=== PATIENT | female | born 1930 | race Caucasian/White ===

== ENCOUNTER 2019-07-13 13:02 | Inpatient (IN) ==
[2019-07-13 13:54] LABS: Bilirubin,Urine Negative (Negative); Blood,Urine Trace (Negative); Clarity,Urine Clear (Clear); Color,Urine Yellow (Yellow); Glucose,Urine (UA) Normal (Normal); Ketones,Urine Negative (Negative); Leukocyte Esterase,Urine Negative (Negative); Nitrite,Urine Negative (Negative); Protein,Urine 100 mg/dL (Neg-Trace); Specific Gravity,Urine 1.016 (1.010-1.025); Urobilinogen,Urine Normal (Normal)
[2019-07-13 13:57] LABS: Basophils % 0.3 %; Eosinophils # 0.1 K/mcL (0.0-0.6); Eosinophils % 1.4 %; Hemoglobin 11.8 g/dL (11.5-15.4); Immature Granulocytes % 0.6 % (0-4); Lymphocytes # 0.7 K/mcL (0.6-4.6); Lymphocytes % 9.1 %; Mean Corpuscular HGB Conc 33.7 g/dL (31.6-35.5); Mean Corpuscular Hemoglobin 29.2 pg (28.0-33.3); Mean Corpuscular Volume 86.6 fL (83.0-100.0); Mean Platelet Volume 10.6 fL (9.4-12.4); Monocytes # 0.6 K/mcL (0.0-1.3); Monocytes % 8.3 %; Neutrophils # 5.7 K/mcL (1.6-8.9); Platelet Count 106 K/mcL (140-400); Red Blood Count 4.04 M/mcL (3.82-4.97); Red Cell Distribution Width 13.6 % (11.5-14.5); Segmented Neutrophils % 80.3 %; White Blood Count 7.1 K/mcL (4.3-11.1)
[2019-07-13 13:58] LABS: Bacteria,Urine None Seen per hpf (None-Few); Hyaline Casts,Urine None Seen per lpf (None-Few); RBC,Urine 0-3 per hpf (0-3); Squamous Epithelial Cell,Urine Many per lpf (None-Few); WBC,Urine 0-3 per hpf (0-3)
[2019-07-13 13:59] LABS: Prothrombin Time 10.8 Seconds (9.4-12.1)
[2019-07-13 14:02] LABS: Activated Partial Thrombo Time 39.7 Seconds (26.0-36.0)
[2019-07-13 14:08] LABS: Alanine Aminotransferase 39 Units/L (7-52); Albumin 4.1 g/dL (3.5-5.7); Albumin/Globulin Ratio 1.3 (1.1-2.2); Alkaline Phosphatase 104 Units/L (34-104); Aspartate Amino Transferase 37 Units/L (13-39); BUN/Creatinine Ratio 26 (6-26); Bilirubin,Total 0.3 mg/dL (0.3-1.0); Blood Urea Nitrogen 20 mg/dL (8-23); Calcium 9.6 mg/dL (8.6-10.3); Carbon Dioxide 26 mEq/L (23-29); Chloride 93 mEq/L (98-107); Globulin 3.2 g/dL (2.4-3.5); Glucose 124 mg/dL (70-105); Osmolality,Calculated 260 (280-300); Potassium 4.8 mEq/L (3.5-5.1); Sodium 123 mEq/L (136-145); Total Protein 7.3 g/dL (6.4-8.9); eGFR For African Americans > 60 (> 60); eGFR For Non-African Americans > 60 (> 60)
[2019-07-13 14:09] LABS: Troponin I < 0.03 ng/mL (< 0.04)
[2019-07-13] MEDS ORDERED: 0.9 % Sodium Chloride 1,000 ML IVC SCH (14:45)
[2019-07-13] MEDS ORDERED: Ondansetron 4 MG/2 ML VIAL IVP PRN (15:39)
[2019-07-13] MEDS ORDERED: Naloxone 0.4 MG/ML INJ IVP PRN (15:39)
[2019-07-13] MEDS ORDERED: Dextrose Gel 15 GM/37.5 ML TUBE PO PRN ×2 (15:53)
[2019-07-13] MEDS ORDERED: D5% in Water 1,000 ML IVC PRN (15:53)
[2019-07-13] MEDS ORDERED: *HR* Dextrose 50 % in Water (Syg) 50 ML SYRINGE IVP PRN (15:53)
[2019-07-13 16:17] LABS: ABG Base Excess 2 mEq/L (-2 to 3); ABG HCO3 27 mEq/L (21-27); ABG Oxygen Saturation 98 % (95-98); ABG PCO2 39 mmHg (35-45); ABG PH 7.44 pH Units (7.32-7.45); ABG PO2 92 mmHg (85-104); ABG TCO2 28 mEq/L (20-26)
[2019-07-13] MEDS ORDERED: Levothyroxine Sodium 100 MCG VIAL IVP ONE (16:27)
[2019-07-13] MEDS ORDERED: Hydrocortisone Sodium Succ 100 MG/2 ML VIAL IVP ONE (16:53)
[2019-07-13 17:31] LABS: Triiodothyronine (T3) Free 2.76 pg/mL (2.50-3.90)
[2019-07-13] MEDS ORDERED: Cosyntropin 250 MCG/2 ML VIAL IVP ONE (18:03)
[2019-07-13 23:53] LABS: BUN/Creatinine Ratio 23 (6-26); Blood Urea Nitrogen 19 mg/dL (8-23); Calcium 9.1 mg/dL (8.6-10.3); Carbon Dioxide 25 mEq/L (23-29); Chloride 96 mEq/L (98-107); Glucose 215 mg/dL (70-105); Osmolality,Calculated 271 (280-300); Potassium 4.2 mEq/L (3.5-5.1); Sodium 126 mEq/L (136-145); eGFR For African Americans > 60 (> 60); eGFR For Non-African Americans > 60 (> 60)
[2019-07-13] MEDS: Insulin LISPRO 300 UNITS/3 ML VIAL SQ SCH (23:53)
[2019-07-14] MEDS: 0.9 % Sodium Chloride 1,000 ML IVC SCH ×2 (00:45→06:38)
[2019-07-14 04:26] LABS: Basophils % 0.2 %
[2019-07-14 04:28] LABS: Eosinophils % 0.2 %; Hematocrit 32.5 % (35.3-44.9); Immature Granulocytes % 0.4 % (0-4); Immature Platelets 4.1 % (1.1-6.1); Lymphocytes # 0.5 K/mcL (0.6-4.6); Lymphocytes % 9.3 %; Mean Corpuscular HGB Conc 33.8 g/dL (31.6-35.5); Mean Corpuscular Hemoglobin 29.6 pg (28.0-33.3); Mean Corpuscular Volume 87.6 fL (83.0-100.0); Mean Platelet Volume 9.8 fL (9.4-12.4); Monocytes # 0.4 K/mcL (0.0-1.3); Platelet Count 103 K/mcL (140-400); Red Blood Count 3.71 M/mcL (3.82-4.97); Red Cell Distribution Width 13.8 % (11.5-14.5); Segmented Neutrophils % 82.9 %; White Blood Count 5.1 K/mcL (4.3-11.1)
[2019-07-14 04:45] LABS: BUN/Creatinine Ratio 23 (6-26); Blood Urea Nitrogen 19 mg/dL (8-23); Calcium 9.1 mg/dL (8.6-10.3); Carbon Dioxide 26 mEq/L (23-29); Chloride 101 mEq/L (98-107); Glucose 68 mg/dL (70-105); Magnesium 1.8 mg/dL (1.6-2.6); Osmolality,Calculated 271 (280-300); Phosphorous 3.3 mg/dL (2.7-4.5); Sodium 130 mEq/L (136-145); eGFR For African Americans > 60 (> 60); eGFR For Non-African Americans > 60 (> 60)
[2019-07-14 04:47] LABS: Neutrophils # 4.2 K/mcL (1.6-8.9)
[2019-07-14 04:48] LABS: Platelet Estimate Decreased (Normal)
[2019-07-14 05:11] LABS: Folate 8.5 ng/mL (3.0-16.0)
[2019-07-14 05:12] LABS: Vitamin B12 > 1500 pg/mL (250-1100)
[2019-07-14] MEDS ORDERED: Levothyroxine Sodium 100 MCG VIAL IVP ONE (05:36)
[2019-07-14] MEDS: Insulin LISPRO 300 UNITS/3 ML VIAL SQ SCH ×2 (05:54→16:36)
[2019-07-14 10:08] LABS: Estimated Average Glucose 186 mg/dl
[2019-07-14] MEDS ORDERED: Naloxone 0.4 MG/ML INJ IVP PRN (10:10)
[2019-07-14] MEDS ORDERED: Ondansetron 4 MG/2 ML VIAL IVP PRN (10:10)
[2019-07-14] MEDS ORDERED: D5% in Water 1,000 ML IVC PRN (10:10)
[2019-07-14] MEDS ORDERED: *HR* Dextrose 50 % in Water (Syg) 50 ML SYRINGE IVP PRN (10:10)
[2019-07-14] MEDS ORDERED: Dextrose Gel 15 GM/37.5 ML TUBE PO PRN ×2 (10:10)
[2019-07-14] MEDS ORDERED: Insulin LISPRO 300 UNITS/3 ML VIAL SQ SCH (12:00)
[2019-07-14] MEDS: *HR* Heparin 5,000 UNIT/ML VIAL SQ SCH (17:49)
[2019-07-15] MEDS: Insulin LISPRO 300 UNITS/3 ML VIAL SQ SCH ×5 (00:14→19:54)
[2019-07-15] MEDS: *HR* Heparin 5,000 UNIT/ML VIAL SQ SCH ×2 (06:30→16:58)
[2019-07-15 09:27] LABS: Hemoglobin 10.9 g/dL (11.5-15.4); Mean Corpuscular Hemoglobin 29.5 pg (28.0-33.3); Red Blood Count 3.69 M/mcL (3.82-4.97); Red Cell Distribution Width 14.3 % (11.5-14.5)
[2019-07-15 09:29] LABS: Hematocrit 32.8 % (35.3-44.9); Immature Platelets 3.9 % (1.1-6.1); Mean Corpuscular HGB Conc 33.2 g/dL (31.6-35.5); Mean Corpuscular Volume 88.9 fL (83.0-100.0); Mean Platelet Volume 10.1 fL (9.4-12.4); Platelet Count 107 K/mcL (140-400); White Blood Count 5.4 K/mcL (4.3-11.1)
[2019-07-15 09:49] LABS: BUN/Creatinine Ratio 28 (6-26); Blood Urea Nitrogen 24 mg/dL (8-23); Calcium 9.5 mg/dL (8.6-10.3); Carbon Dioxide 26 mEq/L (23-29); Chloride 102 mEq/L (98-107); Glucose 106 mg/dL (70-105); Osmolality,Calculated 282 (280-300); Potassium 3.9 mEq/L (3.5-5.1); Sodium 134 mEq/L (136-145); eGFR For African Americans > 60 (> 60); eGFR For Non-African Americans > 60 (> 60)
[2019-07-15 10:22] LABS: Lymphocytes # 1.4 K/mcL (0.6-4.6); Monocytes # 0.4 K/mcL (0.0-1.3); Neutrophils # 3.6 K/mcL (1.6-8.9)
[2019-07-15 10:25] LABS: Anisocytosis 1+ (Not Present); Platelet Estimate Decreased (Normal)
[2019-07-16] MEDS: *HR* Heparin 5,000 UNIT/ML VIAL SQ SCH ×2 (06:19→16:32)
[2019-07-16] MEDS: Insulin LISPRO 300 UNITS/3 ML VIAL SQ SCH ×4 (07:34→20:03)
[2019-07-16] MEDS: lisinopriL 5 MG TABLET PO SCH (08:03)
[2019-07-16 09:31] LABS: BUN/Creatinine Ratio 25 (6-26); Blood Urea Nitrogen 22 mg/dL (8-23); Carbon Dioxide 27 mEq/L (23-29); Chloride 100 mEq/L (98-107); Glucose 111 mg/dL (70-105); Osmolality,Calculated 280 (280-300); Potassium 4.2 mEq/L (3.5-5.1); Sodium 133 mEq/L (136-145); eGFR For African Americans > 60 (> 60); eGFR For Non-African Americans 60 (> 60)
[2019-07-17] MEDS: *HR* Heparin 5,000 UNIT/ML VIAL SQ SCH ×2 (05:18→16:45)
[2019-07-17 06:50] LABS: BUN/Creatinine Ratio 29 (6-26); Blood Urea Nitrogen 29 mg/dL (8-23); Calcium 9.9 mg/dL (8.6-10.3); Carbon Dioxide 27 mEq/L (23-29); Chloride 99 mEq/L (98-107); Glucose 123 mg/dL (70-105); Osmolality,Calculated 285 (280-300); Sodium 134 mEq/L (136-145); eGFR For African Americans > 60 (> 60); eGFR For Non-African Americans 52 (> 60)
[2019-07-17] MEDS: Insulin LISPRO 300 UNITS/3 ML VIAL SQ SCH ×4 (07:30→21:07)
[2019-07-17] MEDS: lisinopriL 5 MG TABLET PO SCH ×2 (08:08→08:13)
[2019-07-18] MEDS: *HR* Heparin 5,000 UNIT/ML VIAL SQ SCH ×2 (06:00→17:21)
[2019-07-18] MEDS: lisinopriL 5 MG TABLET PO SCH (07:40)
[2019-07-18] MEDS: Insulin LISPRO 300 UNITS/3 ML VIAL SQ SCH ×4 (07:40→20:20)
[2019-07-19] MEDS: *HR* Heparin 5,000 UNIT/ML VIAL SQ SCH (05:23)
[2019-07-19] MEDS: Insulin LISPRO 300 UNITS/3 ML VIAL SQ SCH ×3 (08:06→17:33)
[2019-07-19] MEDS: lisinopriL 5 MG TABLET PO SCH (09:13)
[2019-07-19 15:10] VITALS: BP 110/57
== END 2019-07-19 18:02 | DRG 80 ==
LOC: 2ANU 13:02 → EMEROOARM 13:02 → SUATTDRO 15:12 → 2ANU 15:43 → ICNU 17:03 → SUATTDRO 07-14 08:29 → 2ANU 07-14 09:35
PROVIDERS: ADMIT Internal Medicine; ATTEND Internal Medicine